=== PATIENT | male | born 1935 | race Caucasian/White ===

== ENCOUNTER 2024-03-02 17:44 | Inpatient (IN) | payer OTHER, SELFPAY ==
[2024-03-02] VITALS (12 sets, daily range): BP systolic 114–154; BP diastolic 55–87; BMI 30.2; BMI 30.8
[2024-03-02 14:08] LABS: % Basophils 0.2 % (0-2); % Eosinophils 0.2 % (0-6); % Immature Granulocytes 0.2 % (0-0.5); % Lymphocytes 19.3 % (20.5-51.1); % Monocytes 1.9 % (1.7-9.3); % Neutrophils 78.2 % (42.2-75.2); Absolute Lymphocytes 0.9 10^3/uL (1.2-3.4); Absolute Monocytes 0.1 10^3/uL (0.1-0.6); Absolute Neutrophils 3.6 10^3/uL (1.4-6.5); Hematocrit 45.4 % (39.0-52.0); Hemoglobin 14.9 g/dL (13.0-18.0); Mean Corp Hgb Conc. 32.8 g/dL (33.0-37.0); Mean Corpuscular Hgb 29.9 pg (27.0-31.0); Mean Corpuscular Volume 91.2 fL (80.0-94.0); Mean Platelet Volume 11.1 fL (7.4-10.4); Nucleated Red Blood Cells % 0 % (-); Platelet Count 145 10^3/uL (130-400); Red Blood Cell Count 4.98 10^6/uL (4.70-6.10); Red Cell Dist. Width 12.7 % (11.5-14.5); White Blood Cell Count 4.6 10^3/uL (4.8-10.8)
[2024-03-02 14:09] LABS: ALT (SGPT) 30 U/L (0-50); AST (SGOT) 42 U/L (17-59); Albumin 4.2 g/dl (3.5-5.0); Alkaline Phosphatase 84 U/L (38-126); Blood Urea Nitrogen 15 mg/dl (9-20); Carbon Dioxide 24 mmol/L (22-30); Chloride 100 mmol/L (98-107); Estimated Creatinine Clearance 80 ml/min; Glucose 189 mg/dl (70-99); Sodium 138 mmol/L (135-145); Total Protein 6.9 g/dl (6.3-8.2); eGFR > 60.00
[2024-03-02] MEDS: DUONEB 3 ML INH (14:21)
[2024-03-02 14:30] LABS: Total Bilirubin 1.6 mg/dl (0.2-1.3)
[2024-03-02 14:33] LABS: INR 2.42; PT 26.4 Sec (11.4-14.6)
--- NOTE | 2024-03-02 14:59 | ED.GENMED ---
History of Present Illness
General
Chief Complaint: Breathing Problem
Time Seen by Provider: 03/02/24 13:26
History of Present Illness
History of Present Illness:
88 presents the emergency department for evaluation of shortness of breath and dry cough for the past week. Has been seen by his primary care physician and started on doxycycline, has taken 5 days thus far, and was placed on prednisone this morning
took 40 mL yesterday. Continues with shortness of breath and wheezing. Has chest pain or leg swelling. Has lost 10 pounds in the past week due to lack of p.o. intake. No nausea or vomiting. Has history of A-fib and is on warfarin, uncertain if
he has paroxysmal permanent A-fib
Past History
Past History
ED Past Medical History: Arrthythmia (atrial fibrillation), Hypercholesterolemia and Other (mitral stenosis)
ED Past Surgical History: Orthopedic (knee athroscopy due to torn meniscus)
Social History
Tobacco: Non-smoker
Alcohol: None
Living: with family
Employment: Retired
Review of Systems
Review of Systems
Allergies reviewed?: Yes
All Other Systems: ROS reviewed and negative except as documented in HPI and ROS
Phy Exam
Physical Exam
Physical Exam:
GEN: Well appearing, NAD, WDWN
HEENT: Oral mucosa moist, no scleral icterus
Cardiac: Tachycardic and irregular
Lung: Mildly tachypneic, diffuse expiratory wheezes heard throughout all lung flores
MSK: No gross deformity or injuries
Skin: Good color, no pallor or jaundice, no rashes
Neuro: AO x3, moves all extremities freely
Psych: Calm, cooperative
Scores
Heart Failure Risk
Heart Failure Risk Score: Not Applicable
Course
Orders/Labs/Results
Orders:
Orders
03/02/24 13:15
EKG [Electrocardiogram (*1)] Urgent
Reason for Study: Shortness of Breath
EKG- Treatment ONCE
03/02/24 13:34
Chest [CR Chest - 2 Views ] Urgent
Comment:
Reason For Exam: SOB
03/02/24 13:39
CBC/With Diff [Complete Blood Count/With Diff] Urgent
CMP [Comprehensive Metabolic Panel] Urgent
03/02/24 14:05
Ipratropium/Albuterol Sulfate [Duoneb] 3 ml INH R NOW ONE
03/02/24 14:06
Prothrombin Time Urgent
03/02/24 14:36
COVID-19 Antigen Urgent
Source: Nasal Swab
Influenza A+B Rapid Molecular Urgent
BALTAZAR Source: Nasal Swab
Specimen Description:
03/02/24 14:41
Add On- LAB Urgent
Tests Added?: BNP
Abnormal Lab Results
03/02/24 03/02/24
13:39 14:06
WBC 4.6 L 10^3/uL
(4.8-10.8)
MCHC 32.8 L g/dL
(33.0-37.0)
MPV 11.1 H fL
(7.4-10.4)
Absolute Lymphs (auto) 0.9 L 10^3/uL
(1.2-3.4)
Neutrophils % 78.2 H %
(42.2-75.2)
Lymphocytes % 19.3 L %
(20.5-51.1)
PT 26.4 H Sec
(11.4-14.6)
Glucose 189 H mg/dl
(70-99)
Total Bilirubin 1.6 H mg/dl
(0.2-1.3)
03/02/24 13:39
03/02/24 13:39
Vital Signs
Initial and Last Documented VS:
Initial Vital Signs
Temp Pulse Resp BP Pulse Ox
97.3 F 66 16 114/55 89
03/02/24 13:10 03/02/24 13:10 03/02/24 13:10 03/02/24 13:10 03/02/24 13:10
Last Documented Vital Signs
Temp Pulse Resp BP Pulse Ox
97.3 F 137 15 131/72 95
03/02/24 13:10 03/02/24 13:52 03/02/24 13:52 03/02/24 13:52 03/02/24 13:56
MDM/Problems Addressed
MDM/Problems Addressed:
Patient is flu positive, will admit for supportive care due to hypoxemia, unlikely to benefit from antivirals given duration of symptoms
He has been intermittent atrial fibrillation, at this time is uncertain as patient is permanent or paroxysmal A-fib in the setting of fevers and indication for rate control or cardioversion given that he is hypoxic from influenza and this is likely
driving his rapid A-fib
*Critical Care Note
Total Time (30-74mins, 75-104mins- exclusive of procedures): Not Applicable
ED Attending Note
-
Portions of this chart may have been created with voice recognition software.� Occasional wrong word or��sound alike� substitutions may have occurred due to the inherent limitations of voice recognition software.
Discharge Plan
Departure
Patient Disposition: Admit
Date of Disposition: 03/02/24
Time of Disposition: 15:00
Admit to: Med/Surg
Presentation/result/management discussed w/ accepting MD/DO: Hospitalist
Discharge Problem:
Influenza A, Acute hypoxemic respiratory failure
Prescriptions:
No Action
finasteride 5 MG tablet
5 mg PO DAILY
diltiazem HCl [Cartia XT] 180 MG capsule,extended release 24hr
180 mg PO DAILY
lisinopril 5 MG tablet
5 mg PO DAILY
warfarin [Jantoven] 5 MG tablet
5 mg PO DAILY
atorvastatin 20 MG tablet
20 mg PO QPM Qty: 90 10RF
nitroglycerin 0.4 MG tablet, sublingual
0.4 mg sublingual [id number] PRN (Reason: chest pain) Qty: 25 10RF
Referrals:
Reba Li MD [Family Provider] -
Interventions
Interventions:
*Risk Screen - Suicide Last Done: 03/02/24 13:10
*General Assessment Last Done: 03/02/24 13:10
*Neglect/Abuse Screening Last Done: 03/02/24 13:10
ED- Fall Risk Assessment Last Done: 03/02/24 13:56
ED- Cardiac Assessment Last Done: 03/02/24 13:56
ED- Pulmonary Assessment Last Done: 03/02/24 13:56
Discharge Date and Time
Print Language: CUBAN
[2024-03-02 15:08] LABS: COVID-19 Antigen Negative (Negative)
[2024-03-02 15:53] LABS: NT-proBNP 411 pg/ml
--- NOTE | 2024-03-02 16:02 | HPS.HSE ---
Addendum entered and electronically signed by Zina Schwartz MD 03/02/24 18:42:
I personally performed a history and physical exam of the patient and discussed management with the resident. I reviewed the resident's note and agree with the documented findings and plan of care HPI/CC.
GENERAL: well developed, well nourished, male in no apparent distress
HEENT: NC/AT 5L O2 NC in place
HEART: irreg irreg
LUNGS : diffuse wheezing bilaterally
ABDOM: soft, nontender, nondistended, + bowel sounds
EXT: no cyanosis, clubbing-- left leg with 2+ LE edema
NEUROLOGIC: grossly intact
Sepsis --POA--(tachypnea, tachycardia) with acute hypoxemic respiratory failure (5L O2 and 91%) secondary to influenza A--cont supplemental O2--admit to IMU as O2 requirements already at 5L--cont xopenex nebs, add IV steroids--start Tamiflu--covid
neg--no pna on CXR
Unclear, if paroxysmal/permanent atrial fibrillation--pt cannot feel if he is in afib--EKG showed ventricular response of 140--again admit to IMU if titratable Cardizem drip needed--cont warfarin and follow PT/INR--cont cardizem for now with PRN IV
lopressor-- no signs of heart failure as pro BNP 411--Last echocardiography done in 2021-ejection fraction 45 to 50%--Patient follows up with Dr. Britton
Left-sided leg edema-- chronic--pt says has been evaluated and he is supposed to wear compression stockings
Essential hypertension-continue losartan
BPH-continue tamsulosin
HLD-continue statin
DVT prophylaxis--warfarin
CODE STATUS--full code
Original Note:
Family Physician
-
Family Physician: Reba Li
Chief Complaint
-
Shortness of breath and cough
History of Present Illness
Patient is an 88-year-old male with past medical history of essential hypertension, hypercholesterolemia, atrial fibrillation, BPH, who presented to emergency with complaints of shortness of breath and dry cough for 1 week. According to the patient
he was in his usual state of health, about 2 to 3 days after [place] he started to have dry cough along with shortness of breath, general weakness and loss of appetite. He visited his primary care physician Dr. Li who prescribed doxycycline
which he took for 5 days along with an inhaler on as-needed basis. Last he started to feel more short of breath, he was unable to sleep in a comfortable position, he used a recliner to adjust his position throughout the night but was
unable to sleep due to audible wheezes and bad cough. As directed by his primary care physician, he checked his oxygen saturation with a pulse ox and it was dropped to low 80s, he called his primary care physician who asked him to feel free to go
to ER and prescribed him a course of prednisone. He took 40 mg of prednisone yesterday but today he felt very uncomfortable, very tired and weak and his pulse ox showed oxygen saturation in 80s so he came to the emergency at [facility].
Patient was not maintaining his oxygen saturation and was 5 L of oxygen in the ER. He denies any sick contacts or recent travel. He had influenza and COVID shot done this year and he has no past medical history of heart failure emphysema or
asthma. He does admit some chills, recent weight loss of about 8 to 10 pounds secondary to decreased appetite, body aches, weakness, palpitations and apprehension. He denies any chest pain, abdominal pain, constipation, diarrhea, burning
micturition, or any other issues.
He has chronic edema of his left leg from last 4 to 5 years which has been evaluated for clots/DVT and it all came back negative. He was advised to wear compression stockings which he has not started yet.
According to the workup in ER, his influenza A test came back positive, COVID-negative, chest x-ray shows no new infiltrates, fluid collections, or consolidation. His EKG shows atrial fibrillation with rapid ventricular response, nonspecific T wave
abnormality. He has had atrial fibrillation for many years and uses warfarin and Cardizem for that. His BMP is normal except total bilirubin of 1.6.
Medical History
Past Medical History
Past Medical History: Reports Arrhythmia (atrial fibrillation), HTN, Hypercholesterolemia and Other (seasonal allergies, benign prostate hyperplasia, obstructive sleep apnea)
Past Surgical History: Reports Other (Surgery for carpal tunnel syndrome, knee arthroscopy for meniscal tear)
Social History
Tobacco: Former Smoker (quit 45 years ago)
Alcohol: None
Drug: None
Personal:
Living: With Family
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
Family History
Family History: Not pertinent
Allergies / Home Medications
Allergies reflects when Allergies were last updated in [employer].
Home Medications with original date entered in [employer]
Allergy/Medication List:
Allergies
Allergy/AdvReac Type Severity Reaction Status Date / Time
No Known Allergies Allergy Verified 03/02/24 13:10
Home Medications
diltiazem HCl 180 mg capsule,extended release 24 hr (Cartia XT) 180 mg PO QPM 11/06/18
atorvastatin 20 mg tablet 20 mg PO QPM #90 tabs 11/07/18
warfarin 5 mg tablet (Jantoven) 5 mg PO DAILY 11/07/18
doxycycline hyclate 100 mg capsule 100 mg PO BID 03/02/24
loratadine 10 mg tablet 10 mg PO Q48H 03/02/24
losartan 25 mg tablet 25 mg PO QPM 03/02/24
prednisone 10 mg tablet 10 mg PO DIRECTED 03/02/24
tamsulosin 0.4 mg capsule 0.8 mg PO QPM 03/02/24
Review of Systems
-
A 12 point ROS was completed and negative except as noted: Yes
Physical Exam
Vital Signs
Vital Signs
Temp Pulse Resp BP Pulse Ox
97.3 F 137 15 131/72 95
03/02/24 13:10 03/02/24 13:52 03/02/24 13:52 03/02/24 13:52 03/02/24 13:56
Physical Exam
General: Well Developed, Well Nourished and No Apparent Distress
HEENT: NormoCephalic, Anicteric, Moist mucous membranes and Oxygen (5 liter)
Respiratory: Wheezes and Other (Harsh vesicular breathing)
Cardiac: S1/S2, Irregular Rhythm and Tachycardia
GI: Soft, Non Tender, Non Distended and Normal Bowel Sounds
Musculoskeletal: No Clubbing, No Cyanosis and Edema, Left Lower Extremity (chronic from last 4-5 years)
Skin: Warm and Dry
Neuro: Awake, Oriented and No Motor Deficits
Psych: Calm and Intact Judgment/Insight
Laboratory Results
-
03/02/24 13:39
03/02/24 13:39
Laboratory Results
PT 26.4 Sec (11.4-14.6) H 03/02/24 14:06
INR 2.42 03/02/24 14:06
Total Bilirubin 1.6 mg/dl (0.2-1.3) H 03/02/24 13:39
AST 42 U/L (17-59) 03/02/24 13:39
ALT 30 U/L (0-50) 03/02/24 13:39
Alkaline Phosphatase 84 U/L (38-126) 03/02/24 13:39
Impression/Plan
-
IMPRESSION:
Patient is a 88-year-old male with past medical history of atrial fibrillation, essential hypertension, hypercholesterolemia, BPH who presented with complaints of worsening shortness of breath and dry cough for last 1 week. Patient had increased
work of breathing along with low oxygen saturation, influenza A positive, tachycardic and tachypneic so fulfilling the criteria of sepsis on admission. Patient has had a 5-day course of doxycycline, albuterol inhaler on as-needed basis and
prednisone 40 mg which he took for only 2 days by his primary care physician. His primary care physician asked him to check his oxygen saturation and if it drops into 80s to go to ER. Today his oxygen saturation was in 80s and he was having
difficulty breathing along with weakness and bodyaches which prompted his visit to ER and he was found to be hypoxemic with respiratory insufficiency secondary to influenza A.
ASSESSMENT/PLAN:
# Sepsis criteria fulfilled on admission(tachypnea, tachycardia) /acute hypoxemic respiratory insufficiency secondary to influenza A
Patient tachypneic and tachycardic on admission, which fulfills the criteria of sepsis
Source of infection his lungs, chest x-ray negative for pneumonia, COVID-negative
Influenza A positive
Patient not maintaining oxygen saturation, on 5 L of oxygen with oxygen saturation of 91-92 with no past medical history of CHF, COPD or asthma
Start patient on Tamiflu, IV steroids, nebulizations, incentive spirometry, cough suppressant
Monitor oxygen saturation and wean off oxygen as able
# Unclear, if paroxysmal/permanent atrial fibrillation
Patient has tachycardia and irregular heart rhythm
Patient is on warfarin and diltiazem at home for his atrial fibrillation
Continue current dose of home medications
Due to tachycardia, add as needed dose of Lopressor 5 mg of heart rate sustained greater than 120 bpm
Continue to monitor, may need to consult cardiology, will hold off for now
Last echocardiography done in 2021-ejection fraction 45 to 50%
Patient follows up with Dr. Britton
# Left-sided leg edema
Patient has chronic edema of his left leg for which he has been evaluated twice for any clots/DVT
All workup came back negative as per the patient
Patient advised to wear pneumatic compression stockings which she has not started yet
# Other medical conditions
Essential hypertension-continue losartan
BPH-continue tamsulosin
Hypercholesterolemia-continue statin
Atrial fibrillation-continue warfarin and diltiazem
DVT prophylaxis-pneumatic compression devices/warfarin
CODE STATUS-full code
[2024-03-02] MEDS: TAMIFLU 75 MG PO (21:04)
[2024-03-02] MEDS: LIPITOR 20 MG PO (21:04)
[2024-03-02] MEDS: FLOMAX 0.8 MG PO (21:09)
[2024-03-02] MEDS: COZAAR 25 MG PO (21:10)
[2024-03-02] MEDS: COUMADIN 5 MG PO (21:10)
[2024-03-02] MEDS: CARDIZEM CD 180 MG PO (21:11)
[2024-03-02] MEDS: XOPENEX 1.25 MG INHALANT SOLUTION INH (21:13)
[2024-03-02] MEDS: DECADRON 4 MG IV (21:20)
--- NOTE | 2024-03-02 23:01 | PTCARENOTE ---
Received verbal and written report from [facility]. Pt arrived to IMU from ED via stretcher. Pt afib on monitor, hr 94. 94% on 2L. Admission assessment completed and mediations administered (see MAR). Pt resting in bed with call summers in reach.
[2024-03-03] VITALS (12 sets, daily range): BP systolic 114–143; BP diastolic 71–101; BMI 30.8
[2024-03-03] MEDS: DECADRON 4 MG IV ×4 (05:36→23:44)
[2024-03-03 05:42] LABS: % Basophils 0.2 % (0-2); % Immature Granulocytes 0.2 % (0-0.5); % Monocytes 2.6 % (1.7-9.3); Absolute Lymphocytes 0.9 10^3/uL (1.2-3.4); Absolute Monocytes 0.2 10^3/uL (0.1-0.6); Absolute Neutrophils 5.1 10^3/uL (1.4-6.5); Hematocrit 40.2 % (39.0-52.0); Hemoglobin 13.3 g/dL (13.0-18.0); INR 2.88; Mean Corp Hgb Conc. 33.1 g/dL (33.0-37.0); Mean Corpuscular Volume 90.5 fL (80.0-94.0); Mean Platelet Volume 11.1 fL (7.4-10.4); Nucleated Red Blood Cells % 0 % (-); PT 30.1 Sec (11.4-14.6); Platelet Count 155 10^3/uL (130-400); Red Blood Cell Count 4.44 10^6/uL (4.70-6.10); Red Cell Dist. Width 12.4 % (11.5-14.5); White Blood Cell Count 6.2 10^3/uL (4.8-10.8)
[2024-03-03 05:43] LABS: APTT 40.4 Sec (23.4-35.0)
[2024-03-03 06:00] LABS: Blood Urea Nitrogen 18 mg/dl (9-20); Calcium 8.8 mg/dl (8.4-10.2); Carbon Dioxide 24 mmol/L (22-30); Chloride 100 mmol/L (98-107); Estimated Creatinine Clearance 90 ml/min; Glucose 145 mg/dl (70-99); Magnesium 1.8 mg/dl (1.6-2.3); Potassium 4.4 mmol/L (3.5-5.1); Sodium 137 mmol/L (135-145); eGFR > 60.00
[2024-03-03] MEDS: LOPRESSOR 5 MG IV (08:00)
--- NOTE | 2024-03-03 08:00 | PTCARENOTE ---
Pt assisted to bathroom by PCT. Monitor showed PT in A-Fib with HR ~ > 150's; Pt reported lightheadedness as well. Assisted Pt to chair and helped back into bed. Pt denies chest pain or palpitations. Lightheadedness resolved. HR sustained >
120 for next 30 minutes - Lopressor IV 5mg administered for sustained rate. Will continue to monitor and assess.
--- NOTE | 2024-03-03 08:03 | W.PN.HOSP.TC ---
Addendum entered and electronically signed by Zina Schwartz MD 03/03/24 14:56:
I saw and evaluated the patient independently. I reviewed the resident�s note and agree with findings and plan as documented by Dr. Demarco.
GENERAL: well developed, well nourished, male in no apparent distress
HEENT: NC/AT 2L O2 NC in place
HEART: irreg irreg with bursts of tachycardia
LUNGS : diffuse wheezing bilaterally--improved
ABDOM: soft, nontender, nondistended, + bowel sounds
EXT: no cyanosis, clubbing-- left leg with 1+ LE edema
NEUROLOGIC: grossly intact
Sepsis --POA--(tachypnea, tachycardia) with acute hypoxemic respiratory failure (5L O2 and 91%) secondary to influenza A--cont supplemental O2, down to 2L--cont xopenex nebs, added IV steroids, taper as able--finish Tamiflu--covid neg--no pna on CXR
paroxysmal vs permanent atrial fibrillation (most likely permanent)--pt cannot feel if he is in afib--EKG showed ventricular response of 140-- titratable Cardizem drip if needed, have room to increase cardizem as only on 180mg daily as outpt----cont
warfarin and follow PT/INR--cont PRN IV lopressor-- no signs of heart failure as pro BNP 411--Last echocardiography done in 2021--ejection fraction 45 to 50%--Patient follows up with Dr. Britton
Left-sided leg edema-- chronic--pt says has been evaluated and he is supposed to wear compression stockings
Essential hypertension--continue losartan
BPH-continue tamsulosin
HLD-continue statin
DVT prophylaxis--warfarin--follow PT/INR
CODE STATUS--full code
Original Note:
Today's Communication/Plan
-
Continue to keep monitoring the heart rate, can increase the dose of diltiazem if needed
Plan to consult cardiology as the patient follows up with Dr. Britton at [facility] group
Assessment / Plan
Assessment / Plan
IMPRESSION:
Patient is a 88-year-old male with past medical history of atrial fibrillation, essential hypertension, hypercholesterolemia, BPH who presented with complaints of worsening shortness of breath and dry cough for last 1 week. Patient had increased
work of breathing along with low oxygen saturation, influenza A positive, tachycardic and tachypneic so fulfilling the criteria of sepsis on admission. Patient has had a 5-day course of doxycycline, albuterol inhaler on as-needed basis and
prednisone 40 mg which he took for only 2 days by his primary care physician. His primary care physician asked him to check his oxygen saturation and if it drops into 80s to go to ER. Today his oxygen saturation was in 80s and he was having
difficulty breathing along with weakness and bodyaches which prompted his visit to ER and he was found to be hypoxemic with respiratory insufficiency secondary to influenza A.
ASSESSMENT/PLAN:
# Sepsis criteria fulfilled on admission(tachypnea, tachycardia)with acute hypoxemic respiratory insufficiency secondary to influenza A
Patient tachypneic and tachycardic on admission, which fulfills the criteria of sepsis
Source of infection his lungs Influenza A positive
chest x-ray negative for pneumonia, COVID-negative
No past medical history of CHF, COPD or asthma
Patient weaned off oxygen and now maintaining oxygen saturation on 2 L of oxygen
Continue Tamiflu, IV steroids, nebulizations, incentive spirometry, cough suppressant
Monitor oxygen saturation and wean off oxygen as able
# Unclear, if paroxysmal/permanent atrial fibrillation
Patient has tachycardia and irregular heart rhythm
Patient is on warfarin and diltiazem at home for his atrial fibrillation
Patient had heart rate fluctuating had an episode of heart rate of 120, where he received a dose of Lopressor
Patient is currently on diltiazem 180 mg daily, there is room to increase the dose
Continue current dose of home medications
Due to tachycardia, add as needed dose of Lopressor 5 mg of heart rate sustained greater than 120 bpm
Continue to monitor, may need to consult cardiology
Last echocardiography done in 2022-ejection fraction 45 to 50%
Patient follows up with Dr. Britton, reach out to [facility] group to see the patient
# Left-sided leg edema
Patient has chronic edema of his left leg for which he has been evaluated twice for any clots/DVT
All workup came back negative as per the patient
Patient advised to wear pneumatic compression stockings
# Other medical conditions
Essential hypertension-continue losartan
BPH-continue tamsulosin
Hypercholesterolemia-continue statin
Atrial fibrillation-continue warfarin and diltiazem
DVT prophylaxis-pneumatic compression devices/warfarin
CODE STATUS-full code
Anticipated Discharge: 24 - 48 hours
Subjective/Interval History
-
Date of Service: March 03, 2024
No active issues, patient feels better than he is
Objective Data
-
Labs:
Laboratory Results
03/03/24
05:20
WBC 6.2
Hgb 13.3
Hct 40.2
Plt Count 155
PT 30.1 H
INR 2.88
APTT 40.4 H
Sodium 137
Potassium 4.4
Chloride 100
Carbon Dioxide 24
BUN 18
Creatinine 0.7
Glucose 145 H
Calcium 8.8
Vital Signs:
Vital Signs
Temp Pulse Resp BP Pulse Ox
97.9 F 78 14 143/96 93
03/03/24 03:00 03/03/24 04:00 03/03/24 04:00 03/03/24 04:00 03/03/24 04:00
I&O
03/02/24 03/03/24 03/04/24
06:59 06:59 06:59
Intake Total 480 / 480
Balance 480 / 480
Review of Systems
-
All other systems: Reviewed and negative
Physical Exam
-
General: Well Developed, Well Nourished and No Apparent Distress
HEENT: Normocephalic, Atraumatic and Oxygen (On 2 L of oxygen)
Respiratory: Clear to Auscultation and Wheezes (Still has some wheezes)
Cardiac: S1/S2, Irregular Rhythm and Tachycardic
GI: Soft, Nontender and Normal Bowel Sounds
Musculoskeletal: No Clubbing, No Cyanosis and No Edema
Skin: Warm
Neuro: Awake and Oriented
Psych: Calm
[2024-03-03] MEDS: TAMIFLU 75 MG PO ×2 (08:04→19:41)
[2024-03-03] MEDS: CLARITIN 10 MG PO (08:04)
[2024-03-03] MEDS: XOPENEX 1.25 MG INHALANT SOLUTION INH ×2 (12:07→19:25)
--- NOTE | 2024-03-03 15:43 | CM ---
O2 1L. Receiving Tamiflu, IV Decadron. PT/OT Karina pending.
Met with patient who resides with his in a 2 story house with 2 NATHAN.
The patient was independent in ADLs and ambulation.
He is active at home working on house projects in his office in the basement.
His Zina is well and can assist as needed.
Patient and both drive.
The patient has no DME, prior VN or SNF.
PCP - Reba Li
Pharmacy - [facility]
The patient is planning a trip to [place] on 03/10 to visit his son near [place]. Patient also has homes elsewhere in [place] including [place].
Plan watch for home O2 needs.
Plan follow up after seen by PT/OT.
[2024-03-03] MEDS: COZAAR 25 MG PO (17:37)
[2024-03-03] MEDS: CARDIZEM CD 180 MG PO (17:38)
[2024-03-03] MEDS: FLOMAX 0.8 MG PO (17:38)
[2024-03-03] MEDS: COUMADIN 5 MG PO (17:39)
[2024-03-03] MEDS: LIPITOR 20 MG PO (17:39)
--- NOTE | 2024-03-03 23:01 | PTCARENOTE ---
Received patient from previous RN. Patient Aox3 and on room air, sating at 92%. Afib on monitor, does has periods of heart rate going into 120s but asymptomatic and has not sustained for this RN thus far. Patient is pleasant and cooperative. Patient
is resting in bed with call summers in reach. Assessment and VS as documented.
[2024-03-04] VITALS (11 sets, daily range): BP systolic 100–126; BP diastolic 57–87; PULSE 98–146; O2SAT 93
[2024-03-04] MEDS: DECADRON 4 MG IV ×2 (05:33→12:24)
[2024-03-04 05:47] LABS: % Basophils 0.1 % (0-2); % Immature Granulocytes 1.1 % (0-0.5); % Lymphocytes 9.8 % (20.5-51.1); % Monocytes 2.3 % (1.7-9.3); % Neutrophils 86.7 % (42.2-75.2); Absolute Immature Granulocytes 0.1 10^3/uL (0-0.05); Absolute Lymphocytes 1.1 10^3/uL (1.2-3.4); Absolute Monocytes 0.3 10^3/uL (0.1-0.6); Absolute Neutrophils 10.1 10^3/uL (1.4-6.5); Hematocrit 38.8 % (39.0-52.0); Mean Corp Hgb Conc. 33.5 g/dL (33.0-37.0); Mean Corpuscular Hgb 30.4 pg (27.0-31.0); Mean Corpuscular Volume 90.9 fL (80.0-94.0); Mean Platelet Volume 10.9 fL (7.4-10.4); Nucleated Red Blood Cells % 0 % (-); Platelet Count 167 10^3/uL (130-400); Red Blood Cell Count 4.27 10^6/uL (4.70-6.10); Red Cell Dist. Width 12.7 % (11.5-14.5); White Blood Cell Count 11.7 10^3/uL (4.8-10.8)
[2024-03-04 05:55] LABS: Blood Urea Nitrogen 24 mg/dl (9-20); Calcium 8.8 mg/dl (8.4-10.2); Carbon Dioxide 26 mmol/L (22-30); Chloride 101 mmol/L (98-107); Estimated Creatinine Clearance 90 ml/min; Glucose 148 mg/dl (70-99); Magnesium 1.9 mg/dl (1.6-2.3); Potassium 4.3 mmol/L (3.5-5.1); Sodium 137 mmol/L (135-145); eGFR > 60.00
[2024-03-04 05:56] LABS: INR 3.66; PT 36.1 Sec (11.4-14.6)
--- NOTE | 2024-03-04 07:05 | W.PN.HOSP.TC ---
Addendum entered and electronically signed by Abby Dai MD 03/04/24 18:33:
Total DC time 40 minutes
Addendum entered and electronically signed by Abby Dai MD 03/04/24 12:52:
I saw and evaluated the patient. I reviewed the resident�s note and agree with findings and plan as documented in the resident�s note.
A/P:
# Sepsis POA with acute hypoxemic respiratory failure (resolved) secondary to influenza A
Off O2 support, walking pulse indicated no need for home O2.
Cont Tamiflu to complete course of 5 days.
Pt requesting nebs prescription (he has nebulizer at home), nebs scripts to be sent to pharmacy
# paroxysmal vs permanent atrial fibrillation (most likely permanent)
Cont PO home dose Cardizem at 180mg daily
IV lopressor PRN
SCALER Coumadin to be held for 2 days with elevated INR- 3.6
check INR in 3 days and Coumadin dosing per outpt card
Cont follows up with Dr. Britton outpt
# Chronic Left-sided leg edema
# Essential hypertension
continue losartan and Cardizem
# BPH-continue tamsulosin
# HLD-continue statin
DVT prophylaxis--warfarin, follow PT/INR
CODE STATUS--full code
Original Note:
Today's Communication/Plan
-
Plan discharge
Assessment / Plan
Assessment / Plan
IMPRESSION:
Patient is a 88-year-old male with past medical history of atrial fibrillation, essential hypertension, hypercholesterolemia, BPH who presented with complaints of worsening shortness of breath and dry cough for last 1 week. Patient had increased
work of breathing along with low oxygen saturation, influenza A positive, tachycardic and tachypneic so fulfilling the criteria of sepsis on admission. Admitted with acute hypoxemic respiratory failure secondary to influenza A.
ASSESSMENT/PLAN:
# Sepsis criteria fulfilled on admission(tachypnea, tachycardia)with acute hypoxemic respiratory insufficiency secondary to influenza A
Patient tachypneic and tachycardic on admission, which fulfills the criteria of sepsis
Source of infection his lungs: Influenza A positive
chest x-ray negative for pneumonia, COVID-negative
No past medical history of CHF, COPD or asthma
Patient weaned off oxygen and now maintaining oxygen saturation on room air
Continue Tamiflu for 2 more days, give oral steroid taper dose, incentive spirometry, cough suppressant
Since patient had oxygen requirement of 5 L on his day of admission, did home oxygen assessment, no need of oxygen
# Unclear, if paroxysmal/permanent atrial fibrillation
Patient has tachycardia and irregular heart rhythm
Patient is on warfarin and diltiazem at home for his atrial fibrillation
Patient had heart rate fluctuating and is on as needed dose of Lopressor for heart rate greater than 140
Patient is currently on diltiazem 180 mg daily, there is room to increase the dose
Continue current dose of home medications
Patient to follow-up with Dr. Britton on outpatient basis
Last echocardiography done in 2021-ejection fraction 45 to 50%
Patient is on Coumadin for atrial fibrillation, INR 3.6, warfarin held for 2 days, patient to have INR and follow-up with Dr. Britton to resume Coumadin
# Left-sided leg edema
Patient has chronic edema of his left leg for which he has been evaluated twice for any clots/DVT
All workup came back negative as per the patient
Patient advised to wear pneumatic compression stockings
# Other medical conditions
Essential hypertension-continue losartan
BPH-continue tamsulosin
Hypercholesterolemia-continue statin
Atrial fibrillation-continue warfarin and diltiazem
DVT prophylaxis-pneumatic compression devices/warfarin
CODE STATUS-full code
Anticipated Discharge: Today
Subjective/Interval History
-
Date of Service: March 04, 2024
Patient is breathing on room air, feeling better still has some chest congestion
Objective Data
-
Labs:
Laboratory Results
03/04/24
05:12
WBC 11.7 H
Hgb 13.0
Hct 38.8 L
Plt Count 167
PT 36.1 H
INR 3.66
Sodium 137
Potassium 4.3
Chloride 101
Carbon Dioxide 26
BUN 24 H
Creatinine 0.7
Glucose 148 H
Calcium 8.8
Vital Signs:
Vital Signs
Temp Pulse Resp BP Pulse Ox
97.7 F 78 16 103/62 94
03/04/24 04:14 03/04/24 04:00 03/04/24 04:00 03/04/24 04:00 03/04/24 04:00
I&O
03/03/24 03/04/24 03/05/24
06:59 06:59 06:59
Intake Total 480 / 480 480 / 480
Output Total 800 / 800
Balance 480 / 480 -320 / -320
Review of Systems
-
All other systems: Reviewed and negative
Physical Exam
-
General: Well Developed, Well Nourished and No Apparent Distress
HEENT: Normocephalic, Atraumatic and Moist Mucous Membranes
Respiratory: Wheezes (Still has some wheezes) and Other ( vesicular breathing)
Cardiac: S1/S2, Irregular Rhythm and Tachycardic
GI: Soft, Nontender and Normal Bowel Sounds
Musculoskeletal: No Clubbing, No Cyanosis and Edema, Left Lower Extrem
Skin: Warm
Neuro: Awake, Oriented and No Motor Deficits
Psych: Calm
[2024-03-04] MEDS: TAMIFLU 75 MG PO (08:06)
[2024-03-04] MEDS: XOPENEX 1.25 MG INHALANT SOLUTION INH (09:02)
--- NOTE | 2024-03-04 11:17 | CM ---
Addendum entered by Sherie Townsend RN 03/04/24 11:43:
Home O2 Assessment noted- no need for home O2.
Original Note:
PT/OT Evals; home health vs no needs.
Met with patient who was preparing for d/c. The patient says he feels ready to go home today. IMM completed. Offered VN for PT/OT however patient declined saying he doesn't feel he needs help with his mobility and he is leaving in a few days to
go to [place]. His grandson will provide transport home today.
Plan home today.
--- NOTE | 2024-03-04 12:56 | PTCARENOTE ---
Assumed care of patient this morning. He is going to be discharged after lunch. Pt's grandsonAlfredo will cone picker patient. He had a request to change his pharmacy for prescriptions due to the snow, which the resident Lacey Demarco was able to
resend. Pt also requested nebulizer treatments, which prescription was sent to pharmacy. All questions answered per RN ability. Assessment, care and VS as documented.
--- NOTE | 2024-03-04 14:27 | W.DCSUMMARY ---
Documented by User: Lacey Demarco MD, Resident 03/04/24 14:40
Discharge Summary
Discharge Data
Date of Admission: 03/02/24
Date of Discharge: 03/04/24
-
Pending Results: No
Hospital Course
Discharging Physician :
Abby Dai,Lacey Demarco
Disposition :
Home
Primary care physician :
Reba Li
Principal Discharge diagnosis :
(atrial fibrillation), HTN, Hypercholesterolemia and Other (seasonal allergies, benign prostate hyperplasia, obstructive sleep apnea)
Chronic Discharge diagnosis :
atrial fibrillation, Hypertension, Hypercholesterolemia and Other (seasonal allergies, benign prostate hyperplasia, obstructive sleep apnea)
Hospital Course :
Patient is an 88-year-old male with past medical history of permanent/paroxysmal atrial fibrillation, essential hypertension, hypercholesterolemia, BPH who presented with complaints of worsening shortness of breath and dry cough for 1 week. Patient
had increased work of breathing with low oxygen saturation, influenza A came back positive, he fulfilled the criteria of sepsis on admission with tachycardia and tachypnea, admitted to IMU for hypoxemic respiratory failure. Patient treated with
Tamiflu, IV steroids, nebulizations, incentive spirometry to which he responded well and was gradually weaned off oxygen. Home oxygen assessment done, no need of oxygen at home.
During his stay in the hospital his heart rate fluctuated, he had few episodes of tachycardia for which he required Lopressor but there was no sustained tachycardia observed and it was likely due to the infectious process.
Patient is on warfarin for his atrial fibrillation, his INR was 3.6, warfarin discontinued for 2 days, patient to follow-up with INR with his primary care physician who can resume the warfarin.
Patient will also follow-up with his skip miner blasting Dr. Britton for his atrial fibrillation as a regular follow-up.
Important imaging findings :
Chest x-ray 03/02/2024
IMPRESSION:
1. Mild to moderate cardiomegaly.
2. No radiographic evidence for acute pulmonary edema or pleural effusion.
3. Mild bilateral lung hyperinflation.
4. Mild scarring in both lower lungs.
Discharge Plan
-
Patient Disposition: Home with Home Care
Discharge Diagnosis/Procedures: acute hypoxemic respiratory failure (resolved) secondary to influenza A
Condition: Fair
Diet: As tolerated
Activity: As tolerated
Driving Restrictions: As prior to admission
Bathing Restrictions: OK to Shower
Referrals:
Capo Britton MD [Active] - in less than 1 week
Reba iL MD [Family Provider] - in less than 1 week
Prescriptions:
New
oseltamivir 75 mg Capsule
75 mg PO BID 2 Days Qty: 4 0RF
prednisone 10 mg Tablet
See Rx Instructions .ROUTE .COMPLEX Qty: 30 0RF
Rx Instructions:
Take By Mouth:
40 mg daily x3 days, 30 mg daily x3 days,
20 mg daily x3 days, 10 mg daily x3 days.
ipratropium-albuterol 0.5 mg-3 mg(2.5 mg base)/3 mL solution for nebulization
3 ml inhalation Q6H PRN (Reason: wheezing) Qty: 90 0RF
Continued
diltiazem HCl [Cartia XT] 180 MG capsule,extended release 24hr
180 mg PO QPM
atorvastatin 20 MG tablet
20 mg PO QPM Qty: 90 10RF
tamsulosin 0.4 mg Capsule
0.8 mg PO QPM
losartan 25 mg Tablet
25 mg PO QPM
loratadine 10 mg Tablet
10 mg PO Q48H
Held
warfarin [Jantoven] 5 MG tablet
5 mg PO DAILY
Hold Instructions: Resume on 03/06/24. Check INR and forward to to resume coumadin
Discontinued
prednisone 10 mg Tablet
10 mg PO DIRECTED
Rx Instructions:
40mg daily x 3 days, 30mg daily x 3 days, 20mg daily x 3 days, 10mg daily x 1 day
doxycycline hyclate 100 mg capsule
100 mg PO BID
Rx Instructions:
started 02/25 for 7 days
Discharge Orders:
Discharge Patient (As Directed); Ordered 03/04/24
Ordered By: Lacey Demarco
Discharge Date and Time
Discharge Date/Time: 03/04/24 14:46
Print Language: FINNISH

Documented by User: Abby Dai MD 03/04/24 16:45
Discharge Summary
Discharge Data
Date of Admission: 03/02/24
Date of Discharge: 03/04/24
Hospital Course
Discharging Physician :
Abby Dai Sandal Shahzadi
Disposition :
Home
Primary care physician :
Reba Li
Principal Discharge diagnosis :
(atrial fibrillation), HTN, Hypercholesterolemia and Other (seasonal allergies, benign prostate hyperplasia, obstructive sleep apnea)
Chronic Discharge diagnosis :
atrial fibrillation, Hypertension, Hypercholesterolemia and Other (seasonal allergies, benign prostate hyperplasia, obstructive sleep apnea)
Hospital Course :
Patient is an 88-year-old male with past medical history of permanent/paroxysmal atrial fibrillation, essential hypertension, hypercholesterolemia, BPH who presented with complaints of worsening shortness of breath and dry cough for 1 week. Patient
had increased work of breathing with low oxygen saturation, and his influenza A came back positive. He fulfilled the criteria of sepsis on admission with tachycardia and tachypnea, was admitted to IMU for hypoxemic respiratory failure and was placed
on 5L NC. Patient was treated with Tamiflu, IV steroids (for wheezing), nebulizations, incentive spirometry to which he responded well and was gradually weaned off oxygen. His home oxygen assessment done prior to discharge showed no need of
further oxygen use.
During his stay in the hospital his heart rate fluctuated. He had a few episodes of tachycardia for which he required IV Lopressor as needed but there was no sustained tachycardia observed and it was likely due to infectious process.
Patient is on warfarin for his atrial fibrillation, his INR was 3.6 on the day of discharge, and he has been instructed to hold warfarin for 2 days. He can follow-up INR level with his primary care physician or [facility] for Coumadin dosing.
Patient can also follow-up with his skip [facility]er bl[facility] Dr. Britton for his atrial fibrillation as a regular follow-up.
Important imaging findings :
Chest x-ray 03/02/2024
IMPRESSION:
1. Mild to moderate cardiomegaly.
2. No radiographic evidence for acute pulmonary edema or pleural effusion.
3. Mild bilateral lung hyperinflation.
4. Mild scarring in both lower lungs.
Discharge Plan
-
Patient Disposition: Home with Home Care
Discharge Diagnosis/Procedures: acute hypoxemic respiratory failure (resolved) secondary to influenza A
Condition: Fair
Diet: As tolerated
Activity: As tolerated
Driving Restrictions: As prior to admission
Bathing Restrictions: OK to Shower
Referrals:
Capo Britton MD [Active] - in less than 1 week
Reba Li MD [Family Provider] - in less than 1 week
Prescriptions:
New
oseltamivir 75 mg Capsule
75 mg PO BID 2 Days Qty: 4 0RF
prednisone 10 mg Tablet
See Rx Instructions .ROUTE .COMPLEX Qty: 30 0RF
Rx Instructions:
Take By Mouth:
40 mg daily x3 days, 30 mg daily x3 days,
20 mg daily x3 days, 10 mg daily x3 days.
ipratropium-albuterol 0.5 mg-3 mg(2.5 mg base)/3 mL solution for nebulization
3 ml inhalation Q6H PRN (Reason: wheezing) Qty: 90 0RF
Continued
diltiazem HCl [Cartia XT] 180 MG capsule,extended release 24hr
180 mg PO QPM
atorvastatin 20 MG tablet
20 mg PO QPM Qty: 90 10RF
tamsulosin 0.4 mg Capsule
0.8 mg PO QPM
losartan 25 mg Tablet
25 mg PO QPM
loratadine 10 mg Tablet
10 mg PO Q48H
Held
warfarin [Jantoven] 5 MG tablet
5 mg PO DAILY
Hold Instructions: Resume on 03/06/24. Check INR and forward to to resume coumadin
Discontinued
prednisone 10 mg Tablet
10 mg PO DIRECTED
Rx Instructions:
40mg daily x 3 days, 30mg daily x 3 days, 20mg daily x 3 days, 10mg daily x 1 day
doxycycline hyclate 100 mg capsule
100 mg PO BID
Rx Instructions:
started 02/25 for 7 days
Discharge Orders:
Discharge Patient (As Directed); Ordered 03/04/24
Ordered By: Lacey Demarco
Discharge Date and Time
Discharge Date/Time: 03/04/24 14:46
Print Language: FINNISH
== END 2024-03-04 14:46 | disposition home or self-care (01) | DRG 871 ==
LOC: IMU 17:44
PROVIDERS: Physician Assistant; ADMITTING PHYSICIAN Internal Medicine; ATTENDING PHYSICIAN Internal Medicine; EMERGENCY PHYSICIAN Emergency Medicine; FAMILY PHYSICIAN Family Medicine
DX: A41.89 Other specified sepsis (principal); J96.01 Acute respiratory failure with hypoxia; I48.21 Permanent atrial fibrillation; J10.1 Influenza due to other identified influenza virus with other respiratory manifestations; I10 Essential (primary) hypertension; I48.0 Paroxysmal atrial fibrillation; N40.0 Benign prostatic hyperplasia without lower urinary tract symptoms; E78.00 Pure hypercholesterolemia, unspecified; G47.33 Obstructive sleep apnea (adult) (pediatric); I05.0 Rheumatic mitral stenosis; J30.2 Other seasonal allergic rhinitis; R60.0 Localized edema; Z20.822 Contact with and (suspected) exposure to COVID-19; Z87.891 Personal history of nicotine dependence; Z79.01 Long term (current) use of anticoagulants; Z79.52 Long term (current) use of systemic steroids; Z79.899 Other long term (current) drug therapy
CPT/HCPCS: 71046; 80048; 80053; 83735; 83880; 85025; 85610; 85730; 87502; 87811; 93005; 94640; 97116; 97162; 97166; 99285

== ENCOUNTER → 2024-07-11 09:41 | Outpatient (REF) | payer OTHER, SELFPAY | LOC: RAD 09:41 | PROVIDERS: ATTENDING PHYSICIAN Family Medicine | DX: J45.998 Other asthma (principal); R05.3 Chronic cough | CPT/HCPCS: 71046 ==

== ENCOUNTER → 2024-10-10 11:04 | Outpatient (REF) | payer OTHER, SELFPAY | LOC: MRI 3T 11:04 | PROVIDERS: ATTENDING PHYSICIAN Surgery; FAMILY PHYSICIAN Family Medicine | DX: R97.20 Elevated prostate specific antigen [PSA] (principal) | CPT/HCPCS: 72197; A9575 ==

== ENCOUNTER → 2024-11-29 09:06 | Outpatient (REF) | payer OTHER, SELFPAY | LOC: HWRCS 09:06 | PROVIDERS: ATTENDING PHYSICIAN Nurse Practitioner; FAMILY PHYSICIAN Family Medicine | DX: I25.5 Ischemic cardiomyopathy (principal) | CPT/HCPCS: 93306 ==